=== PATIENT | male | born 1960 | race Caucasian/White ===

== ENCOUNTER 2016-12-16 09:43 | Emergency (ER) | payer OTHER ==
[2016-12-16 09:46] VITALS: BMI 19.6
[2016-12-16 09:49] VITALS: TEMP 98.2; O2SAT 99
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
--- NOTE | 2016-12-16 11:14 | RAD ---
PROCEDURE: Radiographs of the Lumbar Spine. HISTORY: pain COMPARISON: No prior. FINDINGS: BONES: Normal alignment. No listhesis. No fracture. DISC SPACES: Unremarkable. OTHER FINDINGS: None. IMPRESSION: Unremarkable radiographs of the lumbar spine.
[2016-12-16 11:22] VITALS: BP 110/75; PULSE 89; RESP 18
--- NOTE | 2016-12-16 11:24 | RAD ---
PROCEDURE: Radiographs of the left humerus. HISTORY: pain COMPARISON: None. FINDINGS: BONES: Normal. No fracture or focal lesion. SOFT TISSUES: Normal. OTHER FINDINGS: None. IMPRESSION: Normal radiographs of left humerus.
== END 2016-12-16 11:52 | disposition home or self-care (01) ==
LOC: ED 09:43
DX: M79.602 Pain in left arm (principal); M54.5 Low back pain; V49.49XA Driver injured in collision with other motor vehicles in traffic accident, initial encounter; Y92.410 Unspecified street and highway as the place of occurrence of the external cause
CPT/HCPCS: 29240; 72110; 73060; 96372; 99285; J1885